=== PATIENT | male | born 2000 | race Caucasian/White ===

== ENCOUNTER 2021-08-05 18:55 | Emergency (ER) | payer OTHER ==
[2021-08-05] MEDS ORDERED: Boostrix 0.5 ML (Tdap) VIAL ONE (19:41)
[2021-08-05] MEDS ORDERED: Bacitracin 1 PK ONE (19:44)
== END 2021-08-05 20:10 | disposition home or self-care (01) ==
LOC: ERS 18:55
DX: S51.002A Unspecified open wound of left elbow, initial encounter (principal); W01.0XXA Fall on same level from slipping, tripping and stumbling without subsequent striking against object, initial encounter; Y93.02 Activity, running; Y92.410 Unspecified street and highway as the place of occurrence of the external cause; Z23 Encounter for immunization
CPT/HCPCS: 90471; 90715